=== PATIENT | male | born 2000 | race Caucasian/White ===

== ENCOUNTER 2022-10-19 16:44 | Emergency (ER) | payer BC ==
[~2022-10-19] VITALS: Ht 170.2 cm; Wt 117.9 kg
[2022-10-19 17:00] VITALS: BP 153/79
[2022-10-19] MEDS ORDERED: IBUPROFEN 800 MG (MOTRIN) TAB PO ONE (18:00)
[2022-10-19] MEDS ORDERED: ACETAMINOPHEN 500 MG TAB (TYLENOL) PO ONE (18:00)
--- NOTE | 2022-10-19 18:00 | ED Cough/URI ---
General Chief Complaint: Cough/Cold/Flu Symptoms Stated Complaint: FEVER 103 - COUGH - CONGESTION Nursing Triage Note: PT ABM TO TRIAGE WITH COMPLAINT OF COUGH, FEVER, CHILLS, LEG PAIN. STATES STARTED 3 DAYS AGO. HAS NOT HAD ANYTHING FOR FEVER TODAY. Source: patient Exam Limitations: no limitations History of Present Illness Date Seen by Provider: Oct 19, 2022 Time Seen by Provider: 17:08 Initial Comments 21-year-old male presents with flu-like symptoms for the last 3 days. Patient reports cough, fever, chest pain with cough, weakness, vomiting. Patient report s some shortness of breath with coughing otherwise denies shortness of air. Patient reports he has been using [id number] cough medicine and ibuprofen. Patient states he has not taken any ibuprofen today. Severity/Quality: moderate Associated Symptoms: chest pain/soreness, cough, fever/chills, other (weakness) Allergies and Home Medications Allergies Coded Allergies: No Known Drug Allergies (Unverified , 10/19/22) Patient Home Medication List Home Medication List Reviewed: Yes Review of Systems Review of Systems Constitutional: see HPI Past [id number] Hx Patient Social History Tobacco Use?: No Use of E-Cig and/or Vaping dev: No Substance use?: No Alcohol Use?: Yes Alcohol Frequency: Once in a while Pt feels they are or have been: No Physical Exam Vital Signs - First Documented 10/19/22 17:00 Temp 39.5 Pulse 122 Resp 20 B/P (MAP) 153/79 (103) Pulse Ox 97 O2 Delivery Room Air Capillary Refill : Less Than 3 Seconds Height: '" Weight: lbs. oz. kg; 40.00 BMI Method: General Appearance: WD/WN, mild distress Neck: supple, normal inspection Respiratory: lungs clear, normal breath sounds, no respiratory distress, no accessory muscle use Cardiovascular: regular rate, rhythm, no edema, no gallop, no JVD, no murmur Extremities: normal range of motion, normal inspection Neurologic/Psychiatric: alert, normal mood/affect, oriented x 3 Skin: normal color, warm/dry Progress/Results/Core Measures Suspected Sepsis SIRS Temperature: Pulse: 122 Respiratory Rate: 20 Blood Pressure 153 /79 Mean: 103 Results/Orders Lab Results Laboratory Tests Test 10/19/22 17:09 Range/Units Influenza Type A (RT-PCR) Detected H Not Detecte Influenza Type B (RT-PCR) Not Detected Not Detecte SARS-CoV-2 RNA (RT-PCR) Not Detected Not Detecte My Orders Orders - FRANCISCO LARIOS APRN Acetaminophen Tablet (Tylenol Tablet) (10/19/22 18:00) Ibuprofen Tablet (Motrin Tablet) (10/19/22 18:00) Vital Signs/I&O 10/19/22 17:00 Temp 39.5 Pulse 122 Resp 20 B/P (MAP) 153/79 (103) Pulse Ox 97 O2 Delivery Room Air Capillary Refill : Less Than 3 Seconds Blood Pressure Mean: 103 Progress Note : Time: 17:59 Progress Note Patient seen and evaluated. Patient positive for flu A. Patient reports he has not taken any medicine today. Tylenol and ibuprofen ordered. Patient instructed to use humidifier next to bed while sleeping. Take [id number] cough syrup, alternate Tylenol and ibuprofen every 4 hours for discomfort and fever. Patient instructed to increase water intake and decrease caffeinated beverage intake. Departure Impression Primary Impression: Influenza Disposition: 01 HOME, SELF-CARE Condition: Stable Departure-Patient Inst. Referrals: NO,LOCAL PHYSICIAN (PCP/Family) Primary Care Physician Patient Instructions: Flu Add. Discharge Instructions: You are positive for influenza A. Isolate yourself from others until you are fever free without any fever reducing medications for least 24 hours. Increase your water intake, decrease caffeinated and high sugar beverage intake. You may take vitamin C, vitamin D, zinc to help improve your immune system. Place a humidifier at your bedside to help with cough at night. Use distilled water in the humidifier. Follow-up with your primary care provider Return for any new or concerning symptoms like increased shortness of breath, uncontrolled fever, increased weakness, inability to drink water. All discharge instructions reviewed with patient and/or family. Voiced understanding. FRANCISCO LARIOS APRN Oct 19, 2022 18:00
== END 2022-10-19 18:10 | disposition home or self-care (01) ==
LOC: ER 16:46
DX: J10.1 Influenza due to other identified influenza virus with other respiratory manifestations (principal); Z20.822 Contact with and (suspected) exposure to COVID-19; Z28.310 Unvaccinated for COVID-19
CPT/HCPCS: 87636